=== PATIENT | female | born 1980 | race Caucasian/White ===

== ENCOUNTER 2020-07-09 23:39 | Emergency (ER) | payer OTHER ==
[~2020-07-09 23:39] MED LIST: AEROCHAMBER1 EA XX; AZITHROMYCIN250 MG PO; BENZONATATE100 MG PO; LODINE CAP 300300 MG PO; VENTOLIN HFA 66.7 GM INH; ZOFRAN ODT 4 MG4 MG PO
== END 2020-07-10 05:21 | disposition home or self-care (01) ==
LOC: ER1 23:39
DX: B34.9 Viral infection, unspecified (principal); J02.9 Acute pharyngitis, unspecified; G40.909 Epilepsy, unspecified, not intractable, without status epilepticus; F17.200 Nicotine dependence, unspecified, uncomplicated; Z79.899 Other long term (current) drug therapy; Z20.822 Contact with and (suspected) exposure to COVID-19
CPT/HCPCS: 71045; 99284; U0002

== ENCOUNTER 2021-02-03 16:28 | Emergency (ER) | payer OTHER ==
[2021-02-03] MEDS ORDERED: VENTOLIN HFA 66.7 GM INH (19:50)
[2021-02-03] MEDS ORDERED: LODINE CAP 300300 MG PO (19:50)
== END 2021-02-03 20:20 | disposition home or self-care (01) ==
LOC: ER1 16:28
DX: U07.1 COVID-19 (principal); Z90.89 Acquired absence of other organs; F17.210 Nicotine dependence, cigarettes, uncomplicated; Z86.73 Personal history of transient ischemic attack (TIA), and cerebral infarction without residual deficits
CPT/HCPCS: 99283; U0002